=== PATIENT | male | born 1960 | race Caucasian/White ===

== ENCOUNTER 2018-04-26 06:29 | Inpatient (IN) | payer OTHER ==
[~2018-04-26] VITALS: Ht 185.4 cm; Wt 117.9 kg
[2018-04-26] MEDS ORDERED: CELECOXIB 100 MG CAPSULE ONE (09:40)
[2018-04-26] MEDS ORDERED: oxyCODONE HCL SR 10MG TAB.SR.12H PO ONE (09:40)
[2018-04-26] MEDS ORDERED: ACETAMINOPHEN 325 MG TABLET ONE (09:40)
[2018-04-26] MEDS ORDERED: HYDROMORPHONE INJ 2 MG/ML DISP.SYRIN ONE (10:05)
[2018-04-26] MEDS ORDERED: MIDAZOLAM HCL 2 MG/2ML VIAL ONE (10:05)
[2018-04-26] MEDS ORDERED: ROCURONIUM BROMIDE 50 MG/5 ML ONE (10:06)
[2018-04-26] MEDS ORDERED: BACITRACIN 50000 UNITS/VIAL ONE (10:18)
[2018-04-26] MEDS ORDERED: TRANEXAMIC ACID 3,000 MG in SODIUM CHLORIDE IRRIG SOLUTION 70 ML IR ONE (10:30)
[2018-04-26] MEDS ORDERED: HYDROMORPHONE 1 MG/1 ML DISP.SYRIN ONE (12:03)
--- NOTE | 2018-04-26 12:30 | NUR ---
RECEIVED PT. FROM REC. RM.RT. HIP DRSG. DRY AND INTACT.DVT PUMPS IN PLACE. IV INFUSING.DENIES PAIN. AT BEDSIDE.SIDE RAILS UP CALL LIGHT IN PLACE.ICE PACK TO RT. HIP.DENIES N/TINGLING TO EXTREMITIES.VS STABLE.
[2018-04-26 12:45] VITALS: BP 149/95
[2018-04-26] MEDS ORDERED: BISACODYL SUPP (10 MG) 10 MG/SUPP.RECT SUPP.RECT RC PRN (13:30)
[2018-04-26] MEDS ORDERED: DOCUSATE SODIUM 250 MG CAPSULE PO PRN (13:30)
[2018-04-26] MEDS ORDERED: ZOLPIDEM TARTRATE 5 MG TABLET PO PRN ×2 (13:30→14:00)
[2018-04-26] MEDS ORDERED: ONDANSETRON HCL/PF 4 MG/2 ML VIAL IVP PRN ×2 (13:30→14:00)
[2018-04-26] MEDS ORDERED: ACETAMINOPHEN 325 MG TABLET PO PRN ×2 (13:30→14:00)
[2018-04-26] MEDS ORDERED: HYDROCODONE/APAP 5/325MG 1 EACH TABLET PO PRN ×2 (13:30→14:00)
[2018-04-26] MEDS ORDERED: SENNOSIDES 8.6 MG TABLET PO PRN (13:30)
[2018-04-26] MEDS ORDERED: HYDROMORPHONE INJ 2 MG/ML DISP.SYRIN IV PRN (13:30)
[2018-04-26] MEDS ORDERED: IV LR 1000 ML 1,000 ML IV PRN (13:30)
[2018-04-26] MEDS ORDERED: Z GUARD REMEDY 2 OZ OINT TP PRN (14:00)
[2018-04-26 16:00] VITALS: BP 120/81
[2018-04-26] MEDS ORDERED: CLONIDINE HCL 0.1 MG TABLET PO PRN (17:30)
[2018-04-26] MEDS ORDERED: diphenhydrAMINE HCL 25 MG CAPSULE PO PRN (17:30)
[2018-04-26] MEDS ORDERED: MENTHOL/CETYLPYRD (CEPACOL) 1 LOZ LOZENGE PO PRN (17:30)
[2018-04-26] MEDS ORDERED: MAG HYDROX/AL HYDROX/SIMETH 30 ML UDC PO PRN (17:30)
[2018-04-26] MEDS ORDERED: LORAZEPAM 1 MG TABLET PO PRN (17:30)
[2018-04-26] MEDS ORDERED: HYDROMORPHONE 1 MG/1 ML DISP.SYRIN SQ PRN (17:30)
[2018-04-26] MEDS ORDERED: ONDANSETRON HCL/PF 4 MG/2 ML VIAL IV PRN (17:30)
[2018-04-26] MEDS: ANCEF 1 GM/50 ML D5W IV SCH ×2 (18:53)
--- NOTE | 2018-04-26 19:35 | NUR ---
MS RN OPENING NOTES RECEIVED PATIENT RESTING IN BED, A & O X4, NO SOB, NO ACUTE DISTRESS NOTED. HAD RIGHT TOTAL HIP REPLACEMENT TODAY, NO C/O PAIN VERBALIZED AT THIS TIME. INSTRUCTED THE PT TO INFORM THE RN IF HE FEELS TO BE IN PAIN BEFORE PAIN BECOMES UNTOLERABLE, PT VERBALIZED UNDERSTANDING. ON ROOM AIR, SATTING 96%. SEEN BY PT TODAY POST SX, PER AM REPORT. IV ACCESS TO LEFT WRIST, INTACT PATENT, RUNNING WITH IVF ORDERED. TOLERATING PO INTAKE WELL. USES URINAL, HAS VOIDED X2 AFTER THE SURGERY. SAFETY MEASURES IN PLACE. BED IN LOW LOCKED POSITION. CALL LIGHT WITHIN REACH. WILL MONITOR CLOSELY.
[2018-04-26 20:00] VITALS: BP 129/79
[2018-04-26] MEDS: FAMOTIDINE (20 MG) 20 MG TABLET PO SCH (20:13)
[2018-04-27] MEDS: oxyCODONE IR immediate release 5 MG PO PRN ×3 (00:48→09:21)
--- NOTE | 2018-04-27 00:48 | NUR ---
PRN OXYCODONE GIVEN PATIENT HAD C/O PAIN TO RIGHT HIP 5, ASKED TO GET PAIN MEDICINE & PREFERRED TO TAKE OXYCODONE PO AT HIS TIME. PRN MEDICINE GIVEN ORDERED. WILL REASSESS FOR EFFECTIVENESS.
[2018-04-27] MEDS: ANCEF 1 GM/50 ML D5W IV SCH ×2 (02:19)
--- NOTE | 2018-04-27 03:25 | NUR ---
MS RN NOTE PT NOTED TO BE SLEEPING COMFORTABLY. NO C/O PAIN TO RIGHT HIP VERBALIZED. WILL CONTINUE TO MONITOR CLOSELY.
[2018-04-27] MEDS ORDERED: HYDROMORPHONE 1 MG/1 ML DISP.SYRIN SQ PRN (05:30)
--- NOTE | 2018-04-27 06:38 | NUR ---
MS RN CLOSING NOTES PATIENT SLEPT INTERMITTENTLY AT NIGHT, A & O X4, NO SOB, NO ACUTE DISTRESS NOTED. HAD RIGHT TOTAL HIP REPLACEMENT, MODERATE C/O PAIN VERBALIZED TO RIGHT HIP AT NIGHT, PRN PAIN MEDICINE GIVEN & WAS EFFECTIVE. ON ROOM AIR, SATTING 95%. SEEN BY DR CASTANEDA AROUND [id number] WITH NEW ORDERS, NOTED & CARRIED OUT. IV ACCESS TO LEFT WRIST, INTACT PATENT, RUNNING WITH IVF ORDERED. TOLERATING PO INTAKE WELL. USES URINAL, HAS VOIDED MULTIPLE TIMES AT NIGHT. USED BSC X2 TO URINATE. NO BM AT NIGHT. SAFETY MEASURES IN PLACE. BED IN LOW LOCKED POSITION. CALL LIGHT WITHIN REACH. WILL ENDORSE TO AM RN FOR CONTINUITY OF CARE.
[2018-04-27 07:20] LABS: BASOPHILS % (AUTO) 0.3 % (0.0-2.0); EOSINOPHILS % (AUTO) 0.2 % (0.0-6.0); HEMATOCRIT 41 % (39-51); HEMOGLOBIN 13.6 g/dL (13.5-17.5); LYMPHOCYTES # (AUTO) 1.6 /CMM (0.8-4.8); LYMPHOCYTES % (AUTO) 13.6 % (20.0-44.0); MEAN CORPUSCULAR HGB CONC 33 g/dl (31.0-36.0); MEAN CORPUSCULAR VOLUME 90 fL (80-96); MONOCYTES % (AUTO) 7.9 % (2.0-12.0); NEUTROPHILS # (AUTO) 9.4 /CMM (1.8-8.9); PLATELET COUNT (AUTO) 217 /CMM (150-450); RDW COEFFICIENT OF VARIATION 14.3 (11.5-15.0); RED BLOOD CELL COUNT(AUTO) 4.56 MIL/uL (4.5-6.0); WHITE BLOOD COUNT (AUTO) 12.1 K/uL (4.3-11.0)
[2018-04-27 07:33] LABS: CALCIUM, SERUM 8.8 mg/dL (8.5-10.1); CREATININE 1.2 mg/dL (0.6-1.3); MAGNESIUM 1.9 mg/dL (1.8-2.4); PHOSPHORUS 3.2 mg/dL (2.5-4.9); POTASSIUM 4.2 mmol/L (3.5-5.1)
--- NOTE | 2018-04-27 07:50 | NUR ---
MS RN OPENING NOTES RECEIVED PATIENT IN STABLE CONDITION. IN NO APPARENT DISTRESS. BEDSIDE RAILS ARE UPX2. BED IS LOCKED AND LOWERED. CALL LIGHT IS WITHIN REACH. IV LINE IS INTACT AND PATENT. WILL CONTINUE TO MONITOR PATIENT.
[2018-04-27 08:00] VITALS: BP 154/80
[2018-04-27] MEDS: DOCUSATE SODIUM 100 MG CAPSULE PO SCH ×2 (09:00→16:46)
[2018-04-27] MEDS: FAMOTIDINE (20 MG) 20 MG TABLET PO SCH (09:21)
[2018-04-27] MEDS ORDERED: RIVAROXABAN 10 MG TABLET PO SCH (17:00)
--- NOTE | 2018-04-27 17:20 | NUR ---
PATIENT WAS DISCHARGED IN STABLE CONDITION. IN NO APPARENT DISTRESS. IV LINE WAS REMOVED. ID BAND WAS REMOVED. ALL NEEDS WERE MET. PATIENTS DRESSING WAS CHANGED BY [facility] [employer] DRIVER PRIOR TO DISCHARGE. EXITCARE PROVIDED TO THE PATIENT. BELONGINGS CHECKED AND GIVEN TO THE PATIENT. PATIENT ESCORTED OUT OF THE FACILITY VIA WHEELCHAIR BY LILIBETH GEORGE AND . WILL DRIVE PATIENT HOME SAFELY. PRESCRIPTIONS WERE GIVEN TO THE PATIENT.
== END 2018-04-27 17:15 | disposition home health service (06) | DRG 470 ==
LOC: DS 06:29 → MED 10:45
PROVIDERS: ADMIT Specialist; ATTEND Specialist
PROC: 0SR90JZ Replacement of Right Hip Joint with Synthetic Substitute, Open Approach (ICD-10-PCS; principal; 2018-04-26 13:20)
DX: M16.11 Unilateral primary osteoarthritis, right hip (principal); E66.9 Obesity, unspecified; Z68.34 Body mass index [BMI] 34.0-34.9, adult
CPT/HCPCS: 36415; 80048-TC; 80061-TC; 83735-TC; 84100-TC; 85025-TC; 86850-TC; 86921-TC; 87081-TC; 97110-TC; 97116-TC; A4217; J0690; J1100; J1170; J2250; J2405; J2704; J2710; J3490; J7060; J7120